=== PATIENT | female | born 1990 | race African-American/Black ===

== ENCOUNTER 2016-09-23 12:01 | Emergency (ER) | payer BC, OTHER ==
[~2016-09-23] VITALS: Ht 177.8 cm; Wt 93.4 kg
[~2016-09-23 12:01] MED LIST: VALA500T5 PO
[2016-09-23 12:20] VITALS: BP 120/68
[2016-09-23] MEDS ORDERED: diphenhydrAMINE HCL 25 MG CAPSULE PO ONE (12:45)
[2016-09-23] MEDS ORDERED: METOCLOPRAMIDE 10 MG TABLET. PO ONE (12:45)
--- NOTE | 2016-09-23 12:45 | PHYS DOC ---
Past Medical History Past Medical History: Migraines, Other Additional Past Medical Histor: genital herpes Past Surgical History: No Surgical History Alcohol Use: Occasionally Drug Use: None Adult General Chief Complaint Chief Complaint: HEADACHE HPI HPI Patient is a 26 year old female presents to emergency department stating that she's had a headache for the last 3 days. She states it's above the left frontal area. She denies any visual changes. She denies any cough congestion she denies any nasal issues. Patient states she has a history of migraines and this is not her typical migraine headache. Patient denies any difficulty with vision, denies any photophobia, does state that she feels nauseated however has not vomited. Patient denies . Review of Systems Review of Systems Constitutional: Denies fever complaint of chills [] Eyes: Denies change in visual acuity, redness, or eye pain [] HENT: Denies nasal congestion or sore throat [] Respiratory: Denies cough or shortness of breath [] Cardiovascular: No additional information not addressed in HPI [] GI: Denies abdominal pain, nausea, vomiting, bloody stools or diarrhea [] : Denies dysuria or hematuria [] Musculoskeletal: Denies back pain or joint pain [] Integument: Denies rash or skin lesions [] Neurologic: headache, denies focal weakness or sensory changes [] Endocrine: Denies polyuria or polydipsia [] Current Medications Current Medications Current Medications Medications (Trade) Dose Ordered Sig/Shavonne Start Time Stop Time Status Last Admin Dose Admin Diphenhydramine HCl (Benadryl) 25 mg 1X ONCE 09/23/16 12:45 09/23/16 12:46 DC 09/23/16 13:35 25 MG Metoclopramide HCl (Reglan) 10 mg 1X ONCE 09/23/16 12:45 09/23/16 12:46 DC 09/23/16 13:35 10 MG Allergies Allergies Allergies Coded Allergies Type Severity Reaction Last Updated Verified No Known Drug Allergies 06/06/14 No Physical Exam Physical Exam Constitutional: Well developed, well nourished, no acute distress, non-toxic appearance. [] HENT: Normocephalic, atraumatic, bilateral external ears normal, oropharynx moist, no oral exudates, nose normal. [Bilateral tympanic membranes appear to be normal. Throat with no erythematous noted nares appear to be swollen with erythematous bilaterally. Patient had tenderness along the frontal sinus on the left. No maxillary sinus tenderness no right frontal sinus tenderness. Eyes: PERRLA, EOMI, conjunctiva normal, no discharge. [] Neck: Normal range of motion, no tenderness, supple, no stridor. [] Cardiovascular:Heart rate regular rhythm, no murmur [] Lungs & Thorax: Bilateral breath sounds clear to auscultation [] Skin: Warm, dry, no erythema, no rash. [] Back: No tenderness Extremities: No tenderness, no cyanosis, no clubbing, ROM intact, no edema. [] Neurologic: Alert and oriented X 3, normal motor function, normal sensory function, no focal deficits noted. [] Psychologic: Affect normal, judgement normal, mood normal. [] Current Patient Data Vital Signs Vital Signs Date Time Temp Pulse Resp B/P (MAP) Pulse Ox O2 Delivery O2 Flow Rate FiO2 09/23/16 12:20 99.0 68 16 120/68 (85) 100 Room Air 99.0 Lab Values Laboratory Tests Test 09/23/16 11:33 POC Urine HCG, Qualitative Hcg negative (Negative) EKG EKG [] Radiology/Procedures Radiology/Procedures [][facility] [address] [place], [place] [id number] IMAGING REPORT Signed PATIENT: OSCAR JEFFERSON ACCOUNT: [id number] : 1990 LOCATION: ER AGE: 26 SEX: F EXAM STATUS: REG ER ORD. PHYSICIAN: ESTRADA POLLARD APRN REASON: headache left frontal times 3 days, chills PROCEDURE: CT HEAD WO CONTRAST INDICATION: headache left frontal times 3 days, chills COMPARISON: None. TECHNIQUE: Axial CT images obtained through the head without intravenous contrast. FINDINGS: No intracranial hemorrhage. No midline shift. Basal cisterns patents. Ventricles and sulci are unremarkable. No acute osseous abnormality. Orbits and paranasal sinuses partially seen and unremarkable. IMPRESSION: 1. No acute intracranial hemorrhage. PQRS Compliance Statement: One or more of the following individualized dose reduction techniques were utilized for this examination: 1. Automated exposure control 2. Adjustment of the mA and/or kV according to patient size 3. Use of iterative reconstruction technique DICTATED and SIGNED BY: RASHAD JETT MD DATE: 09/23/16 8214 CC: ESTRADA POLLARD APRN; KENYA ESPINO MD ~ Course & Med Decision Making Course & Med Decision Making Pertinent Labs and Imaging studies reviewed. (See chart for details) CT scan was negative. Patient was provided with Reglan and Benadryl here in the emergency department which patient states that her headache is feeling better. Recommended the bedside states that she's had a history of seizures in the past and he is concerned that these may have caused her to have headaches at this time. Patient denies any recent history of seizures, she denies any other past medical problems. Patient will be discharged home with a prescription for Reglan spoke with patient regarding's using ibuprofen 800 mg every 8 hours for headache. Also Benadryl 25 mg every 6 hours as needed she was also instructed that this medication will cause drowsiness do not take any be alert and oriented. Patient will be discharged home in stable condition signs symptoms to return back to emergency department been provided. [] Dragon Disclaimer Dragon Disclaimer This electronic medical record was generated, in whole or in part, using a voice recognition dictation system. Departure Departure Impression: Primary Impression: Headache Disposition: 01 HOME, SELF-CARE Condition: STABLE Referrals: KENYA ESPINO MD (PCP) Patient Instructions: General Headache Without Cause, [id number] Additional Instructions: Home to rest in quiet dark environment. Cool packs to the forehead and back and neck may also help with the pain and discomfort. Ibuprofen 800 mg every 8 hours with food stop taking few develop upset stomach. Benadryl 25 mg every 6 hours as needed to help with the headaches as well. This medication will cause drowsiness do not take any be alert and oriented. Medication as prescribed. Drink plenty of fluids. Follow-up primary care physician in the next week. Return back to emergency prior signs symptoms become worse Scripts Metoclopramide Hcl (REGLAN) 10 Mg Tablet 1 TAB PO TID Y for PAIN, #90 TAB Prov: ESTRADA POLLARD APRN 09/23/16 ESTRADA POLLARD APRN Sep 23, 2016 12:45
--- NOTE | 2016-09-23 13:54 | RAD ---
INDICATION: headache left frontal times 3 days, chills COMPARISON: None. TECHNIQUE: Axial CT images obtained through the head without intravenous contrast. FINDINGS: No intracranial hemorrhage. No midline shift. Basal cisterns patents. Ventricles and sulci are unremarkable. No acute osseous abnormality. Orbits and paranasal sinuses partially seen and unremarkable. IMPRESSION: 1. No acute intracranial hemorrhage. PQRS Compliance Statement: One or more of the following individualized dose reduction techniques were utilized for this examination: 1. Automated exposure control 2. Adjustment of the mA and/or kV according to patient size 3. Use of iterative reconstruction technique
[2016-09-23] MEDS ORDERED: METO10TA81 PO (14:16)
== END 2016-09-23 14:20 | disposition home or self-care (01) ==
LOC: ER 12:01
DX: R51 Headache (principal); G43.909 Migraine, unspecified, not intractable, without status migrainosus
CPT/HCPCS: 70450; 81025; 99284; J8597; Q0163

== ENCOUNTER 2018-03-11 04:19 | Emergency (ER) | payer SELFPAY ==
[~2018-03-11 04:19] MED LIST changes: +METO10TA81 PO
== END 2018-03-11 04:34 | disposition left against medical advice (07) ==
LOC: ER 04:19
DX: R10.9 Unspecified abdominal pain (principal); Z53.21 Procedure and treatment not carried out due to patient leaving prior to being seen by health care provider

== ENCOUNTER 2018-05-21 07:10 | Inpatient (IN) | payer OTHER ==
[~2018-05-21] VITALS: Ht 175.3 cm; Wt 77.1 kg
[2018-05-21] MEDS ORDERED: ONDANSETRON PF 4 MG/2 ML VIAL. IV ONE (07:30)
--- NOTE | 2018-05-21 07:36 | PHYS DOC ---
Past Medical History Past Medical History: Migraines, Other Additional Past Medical Histor: genital herpes Past Surgical History: No Surgical History Alcohol Use: Occasionally Drug Use: None Adult General Chief Complaint Chief Complaint: ABDOMINAL PAIN HPI HPI Patient is a 27-year-old female who presents to the emergency department for evaluation of upper abdominal pain which began at about 4 AM. She has had some vomiting, but no diarrhea. No bloody emesis, and she denies any lower abdominal pain, pelvic pain, vaginal bleeding, discharge, or urinary symptoms. She states she had a similar episode of pain several months ago, and went to a freestanding ER, where she received some prescriptions but apparently did not get any diagnostic testing, according to the patient. She has otherwise not had similar symptoms in the past. She has not eaten anything today so she is unable to determine if eating seems to affect her symptoms. The pain is in her epigastric area does not necessarily radiate. There are no alleviating or exacerbating factors to her symptoms otherwise. Review of Systems Review of Systems Constitutional: Denies fever or chills [] Eyes: Denies change in visual acuity, redness, or eye pain [] HENT: Denies nasal congestion or sore throat [] Respiratory: Denies cough or shortness of breath [] Cardiovascular:The patient denies any shortness of breath, chest pain, palpitations, or orthopnea [] GI: No additional information not addressed in HPI [] : Denies dysuria or hematuria [] Musculoskeletal: Denies back pain or joint pain [] Integument: Denies rash or skin lesions [] Neurologic: Denies headache, focal weakness or sensory changes [] Endocrine: Denies polyuria or polydipsia [] All other systems were reviewed and found to be within normal limits, except as documented in this note. Current Medications Current Medications Current Medications Medications (Trade) Dose Ordered Sig/Shavonne Start Time Stop Time Status Last Admin Dose Admin Morphine Sulfate (Morphine Sulfate) 4 mg PRN Q15MIN PRN 05/21/18 07:30 05/22/18 07:29 05/21/18 08:19 4 MG Ondansetron HCl (Zofran) 4 mg 1X ONCE 05/21/18 07:30 05/21/18 07:31 DC 05/21/18 07:39 4 MG Sodium Chloride 1,000 ml @ 1,000 mls/hr Q1H 05/21/18 07:22 05/21/18 08:21 DC 05/21/18 07:39 1,000 MLS/HR Allergies Allergies Allergies Coded Allergies Type Severity Reaction Last Updated Verified No Known Drug Allergies 06/06/14 No Physical Exam Physical Exam PHYSICAL EXAM: CONSTITUTIONAL: Well developed, well nourished HEAD: normocephalic, atraumatic EENT: PERRL, EOMI. Conjunctivae normal color, sclerae non-icteric; moist mucous membranes. NECK: Supple, non-tender; no meningismus. LUNGS: Lungs CTA, breathing even and unlabored. Normal air movement. HEART: Regular rate and rhythm, no murmur CHEST: No deformity; non-tender ABDOMEN: The abdomen is soft, there is moderate epigastric and right upper quadrant tenderness to palpation which reproduces the patient's pain, left upper quadrant, and the remainder of the lower abdomen are soft and non-tender, no masses or bruits. EXTREM: Normal ROM; no deformity, no calf tenderness. Normal pulses palpable in all extremities. There is no pedal edema. SKIN: No rash; no diaphoresis NEURO: Alert; normal speech and cognition; CN's grossly intact; strength grossly intact without focal deficit. BACK: No CVA TTP. Current Patient Data Vital Signs Vital Signs Date Time Temp Pulse Resp B/P (MAP) Pulse Ox O2 Delivery O2 Flow Rate FiO2 05/21/18 08:30 66 16 93/57 (69) 97 Room Air 05/21/18 07:24 98.4 98.4 Lab Values Laboratory Tests Test 05/21/18 07:15 05/21/18 07:30 05/21/18 07:33 Urine Collection Type Unknown Urine Color Melyssa Urine Clarity Clear Urine pH 6.5 Urine Specific [place] >=1.030 Urine Protein Negative mg/dL (NEG-TRACE) Urine Glucose (UA) Negative mg/dL (NEG) Urine Ketones (Stick) Trace mg/dL (NEG) Urine Blood Negative (NEG) Urine Nitrite Negative (NEG) Urine Bilirubin Small (NEG) Urine Urobilinogen Dipstick 2.0 mg/dL (0.2 mg/dL) Urine Leukocyte Esterase Trace (NEG) Urine RBC 0 /HPF (0-2) Urine WBC 0 /HPF (0-4) Urine Squamous Epithelial Cells Few /LPF Urine Bacteria 0 /HPF (0-FEW) Urine Mucus Marked /LPF POC Urine HCG, Qualitative Hcg negative (Negative) White Blood Count 13.6 x10^3/uL (4.0-11.0) H Red Blood Count 3.82 x10^6/uL (3.50-5.40) Hemoglobin 12.9 g/dL (12.0-15.5) Hematocrit 38.6 % (36.0-47.0) Mean Corpuscular Volume 101 fL (79-100) H Mean Corpuscular Hemoglobin 34 pg (25-35) Mean Corpuscular Hemoglobin Concent 33 g/dL (31-37) Red Cell Distribution Width 13.7 % (11.5-14.5) Platelet Count 190 x10^3/uL (140-400) Neutrophils (%) (Auto) 84 % (31-73) H Lymphocytes (%) (Auto) 10 % (24-48) L Monocytes (%) (Auto) 5 % (0-9) Eosinophils (%) (Auto) 0 % (0-3) Basophils (%) (Auto) 0 % (0-3) Neutrophils # (Auto) 11.4 x10^3uL (1.8-7.7) H Lymphocytes # (Auto) 1.4 x10^3/uL (1.0-4.8) Monocytes # (Auto) 0.7 x10^3/uL (0.0-1.1) Eosinophils # (Auto) 0.1 x10^3/uL (0.0-0.7) Basophils # (Auto) 0.0 x10^3/uL (0.0-0.2) Sodium Level 141 mmol/L (136-145) Potassium Level 3.9 mmol/L (3.5-5.1) Chloride Level 103 mmol/L (98-107) Carbon Dioxide Level 26 mmol/L (21-32) Anion Gap 12 (6-14) Blood Urea Nitrogen 9 mg/dL (7-20) Creatinine 0.9 mg/dL (0.6-1.0) Estimated GFR (Cockcroft-Gault) 89.6 BUN/Creatinine Ratio 10 (6-20) Glucose Level 122 mg/dL (70-99) H Calcium Level 9.3 mg/dL (8.5-10.1) Total Bilirubin 1.1 mg/dL (0.2-1.0) H Aspartate Amino Transferase (AST) 131 U/L (15-37) H Alanine Aminotransferase (ALT) 78 U/L (14-59) H Alkaline Phosphatase 84 U/L (46-116) Total Protein 7.4 g/dL (6.4-8.2) Albumin 3.8 g/dL (3.4-5.0) Albumin/Globulin Ratio 1.1 (1.0-1.7) Lipase 110 U/L (73-393) Laboratory Tests 05/21/18 07:33 Laboratory Tests 05/21/18 07:33 EKG EKG [] Radiology/Procedures Radiology/Procedures [PROCEDURE: ABDOMEN LTD Indication:RUQ PAIN TECHNIQUE: Grayscale, color Doppler and spectral waveform is of the abdomen obtained. COMPARISON:None FINDINGS:Visualized pancreas is within normal limits. IVC is patent. Liver is mildly enlarged measuring 18.3 cm in longest dimension with normal echogenicity. Main portal vein is patent. Layering gallstones noted. No pericholecystic fluid or gallbladder wall thickening. CBD measures 9 mm in diameter and is moderately dilated. Right kidney measures 12 cm in length without hydronephrosis. IMPRESSION: 1. Cholelithiasis without imaging evidence of acute cholecystitis. 2. Dilated CBD in the region of head of the pancreas. Differential diagnoses includes choledocholithiasis, pancreatic head/distal CBD mass or stricture. Further evaluation with nonemergent MRCP and MRI abdomen with IV contrast recommended. ] Course & Med Decision Making Course & Med Decision Making Pertinent Labs and Imaging studies reviewed. (See chart for details) 9:05 AM: The patient's condition remained stable. I suspect that she has a common bile duct stone. I discussed the case with GI, and the hospitalist will admit the patient for further evaluation and treatment.[] Which should be noted that although the patient is a patient of Dr. Mustafa according to the computer, the patient states that she has not seen Dr. Mustafa in many years and is no longer a patient of the practice. Dragon Disclaimer Dragon Disclaimer This electronic medical record was generated, in whole or in part, using a voice recognition dictation system. Departure Departure Impression: Primary Impression: Choledocholithiasis Disposition: 09 ADMITTED INPATIENT Admitting Physician: Other (Riffel) Condition: STABLE Referrals: KENYA MUSTAFA MD (PCP) NESS SALDANA MD May 21, 2018 07:36
[2018-05-21] MEDS: IV NORMAL SALINE 1000ML BAG 1,000 ML IV SCH (07:39)
[2018-05-21 07:40] LABS: BASO % 0 % (0-3); EOS # 0.1 x10^3/uL (0.0-0.7); EOS % 0 % (0-3); HEMATOCRIT 38.6 % (36.0-47.0); HEMOGLOBIN 12.9 g/dL (12.0-15.5); LYMPH # 1.4 x10^3/uL (1.0-4.8); LYMPH % 10 % (24-48); MEAN CORPUSCULAR HEMOGLOBIN 34 pg (25-35); MEAN CORPUSCULAR HGB CONC 33 g/dL (31-37); MEAN CORPUSCULAR VOLUME 101 fL (79-100); MONO # 0.7 x10^3/uL (0.0-1.1); MONO % 5 % (0-9); NEUT # 11.4 x10^3uL (1.8-7.7); NEUT % 84 % (31-73); PLATELET COUNT 190 x10^3/uL (140-400); RED BLOOD COUNT 3.82 x10^6/uL (3.50-5.40); RED CELL DISTRIBUTION WIDTH 13.7 % (11.5-14.5); WHITE BLOOD COUNT 13.6 x10^3/uL (4.0-11.0)
[2018-05-21] MEDS: MORPHINE SULFATE 4 MG/ML VIAL. IV/SQ PRN ×2 (07:40→08:19)
[2018-05-21 07:41] LABS: BILIRUBIN,URINE SMALL (NEG); CLARITY,URINE CLEAR; COLOR,URINE AMBER; NITRITE,URINE NEGATIVE (NEG); PH,URINE 6.5; PROTEIN,URINE NEGATIVE (NEG-TRACE)
[2018-05-21 07:52] LABS: CALCIUM 9.3 mg/dL (8.5-10.1); CREATININE 0.9 mg/dL (0.6-1.0); GFR 89.6; POTASSIUM 3.9 mmol/L (3.5-5.1)
[2018-05-21 07:53] LABS: SQUAMOUS EPITHELIAL CELL,UR FEW /LPF
[2018-05-21 07:54] LABS: BACTERIA,URINE 0 /HPF (0-FEW); RBC,URINE 0 /HPF (0-2); WBC,URINE 0 /HPF (0-4)
[2018-05-21 07:58] LABS: ALBUMIN 3.8 g/dL (3.4-5.0); ALBUMIN/GLOBULIN RATIO 1.1 (1.0-1.7); TOTAL BILIRUBIN 1.1 mg/dL (0.2-1.0); TOTAL PROTEIN 7.4 g/dL (6.4-8.2)
--- NOTE | 2018-05-21 08:32 | RAD ---
Indication:RUQ PAIN TECHNIQUE: Grayscale, color Doppler and spectral waveform is of the abdomen obtained. COMPARISON:None FINDINGS:Visualized pancreas is within normal limits. IVC is patent. Liver is mildly enlarged measuring 18.3 cm in longest dimension with normal echogenicity. Main portal vein is patent. Layering gallstones noted. No pericholecystic fluid or gallbladder wall thickening. CBD measures 9 mm in diameter and is moderately dilated. Right kidney measures 12 cm in length without hydronephrosis. IMPRESSION: 1. Cholelithiasis without imaging evidence of acute cholecystitis. 2. Dilated CBD in the region of head of the pancreas. Differential diagnoses includes choledocholithiasis, pancreatic head/distal CBD mass or stricture. Further evaluation with nonemergent MRCP and MRI abdomen with IV contrast recommended. Electronically signed by: Pedro Norris DO (05/21/2018 8:28 AM) [facility]
--- NOTE | 2018-05-21 09:10 | PDOC1 ---
History and Physical Date of Admission Date of Admission DATE: 05/21/18 TIME: :09 Identification/Chief Complaint Chief Complaint Abdominal pain Source Source: Caregiver, Chart review, Patient History of Present Illness History of Present Illness Ms Hernandez is a 27-year-old female [employer]BB[employer]ING MECH[employer]IC with no significant PMHx who presents to the ED with RUQ abdominal pain which began at about 4 AM. She has had some vomiting, but no diarrhea or constipation. No bloody emesis, and she denies any lower abdominal pain, pelvic pain, vaginal bleeding, discharge, or urinary symptoms. She states she had a similar episode of pain several months ago, and went to a freestanding ER, [facility] the [facility], where she received some prescriptions but apparently did not get any abdominal imaging, according to the patient and her mother bedside. She had similar symptoms about 9 months ago, was seen at an outpatient [facility] clinic, told she had mild LFT elevation and WBC elevation and states she was treated for GERD. She has not eaten anything today due to vomiting, cannot recall if pain worsened by food, though she does think so. The pain is in her epigastric area as well as RUQ and does not necessarily radiate. There are no alleviating or exacerbating factors to her symptoms otherwise. WBC 13.6, Bili 1.1, AST 131, ALT 78. Negative ETOH. Has a 12 and 9 yo child at home, both in good health. 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 No recent illnesses. Accompanied by her mother, bedside. Past Medical History Cardiovascular: No pertinent hx Pulmonary: No pertinent hx GI: No pertinent hx Heme/Onc: No pertinent hx Hepatobiliary: No pertinent hx Psych: No pertinent hx Rheumatologic: No pertinent hx Infectious disease: No pertinent hx ENT: No pertinent hx Renal/: No pertinent hx Endocrine: No pertinent hx Dermatology: No pertinent hx Grav: 2 Para: 2 Past Surgical History Past Surgical History: No pertinent history Family History Family History: High Cholestrol Family History: Parent (HLD - mother) Social History Smoke: No ALCOHOL: rare Drugs: None Current Problem List Problem List Problems Medical Problems: (1) Choledocholithiasis Status: Acute Current Medications Current Medications Current Medications Morphine Sulfate (Morphine Sulfate) 4 mg PRN Q15MIN PRN IV/SQ PAIN GREATER THAN 3/10 Last administered on 05/21/18at 08:19; Start 05/21/18 at 07:30; Stop at 07:29 Sodium Chloride 1,000 ml @ 1,000 mls/hr Q1H IV Last administered on 05/21/18at 07:39; Start 05/21/18 at 07:22; Stop 05/21/18 at 08:21; Status DC Ondansetron HCl (Zofran) 4 mg 1X ONCE IV Last administered on 05/21/18at 07:39 ; Start 05/21/18 at 07:30; Stop 05/21/18 at 07:31; Status DC Ertapenem 50 ml @ 100 mls/hr 1X ONCE IV ; Start 05/21/18 at 09:15; Stop at 09:44; Status UNV Active Scripts Active Reglan (Metoclopramide Hcl) 10 Mg Tablet 1 Tab PO TID PRN Reported No Known Medications Prior To Admisstion (Info) Each 1 Each Allergies Allergies: Coded Allergies: No Known Drug Allergies (Unverified , 06/06/14) ROS General: YES: Appetite; No: Chills, Night Sweats, Fatigue, Malaise, Other PSYCHOLOGICAL ROS: No: Anxiety, Behavioral Disorder, Concentration difficultie , Decreased libido, Depression, Disorientation, Hallucinations, Hostility, Irritablity, Memory difficulties, Mood Swings, Obsessive thoughts, Physical abuse, Sexual abuse, Sleep disturbances, Suicidal ideation, Other Eyes: No Blurry vision, No Decreased vision, No Double vision, No Dry eyes, No Excessive tearing, No Eye Pain, No Itchy Eyes, No Loss of vision, No Photophobia , No Scotomata, No Uses contacts, No Uses glasses, No Other HEENT: No: Heacaches, Visual Changes, Hearing change, Nasal congestion, Nasal discharge, Oral lesions, Sinus pain, Sore Throat, Epistaxis, Sneezing, Snoring, Tinnitus, Vertigo, Vocal changes, Other ALLERGY AND IMMUNOLOGY: No: Hives, Insect Bite Sensitivity, Itchy/Watery Eyes, Nasal Congestion, Post Nasal Drip, Seasonal Allergies, Other Hematological and Lymphatic: No: Bleeding Problems, Blood Clots, Blood Transfusions, Brusing, Night Sweats, Pallor, Swollen Lymph Nodes, Other ENDOCRINE: No: Breast Changes, Galactorrhea, Hair Pattern Changes, Hot Flashes , Malaise/lethargy, Mood Swings, Palpitations, Polydipsia/polyuria, Skin Changes , Temperature Intolerance, Unexpected Weight Changes, Other Breast: No New/Changing Breast Lumps, No Nipple changes, No Nipple discharge, No Other Respiratory: No: Cough, Hemoptysis, Orthopnea, Pleuritic Pain, Shortness of breath, SOB with excertion, Sputum Changes, Stridor, Tachypnea, Wheezing, Other Cardiovascular: No Chest Pain, No Palpitations, No Orthopnea, No Paroxysmal Noc. Dyspnea, No Edema, No Lt Headedness, No Other Gastrointestinal: Yes Nausea, Yes Vomiting, Yes Abdominal Pain; No Diarrhea, No Constipation, No Melena, No Hematochezia, No Other Genitourinary: No Dysuria, No Frequency, No Incontinence, No Hematuria, No Retention, No Discharge, No Urgency, No Pain, No Flank Pain, No Other, No , No , No , No , No , No , No Musculoskeletal: No Gait Disturbance, No Joint Pain, No Joint Stiffness, No Joint Swelling, No Muscle Pain, No Muscular Weakness, No Pain In:, No Swelling In:, No Other Neurological: No Behavorial Changes, No Bowel/Bladder ControlChng, No Confusion , No Dizziness, No Gait Disturbance, No Headaches, No Impaired Coord/balance, No Memory Loss, No Numbness/Tingling, No Seizures, No Speech Problems, No Tremors, No Visual Changes, No Weakness, No Other Skin: No Dry Skin, No Eczema, No Hair Changes, No Lumps, No Mole Changes, No Mottling, No Nail Changes, No Pruritus, No Rash, No Skin Lesion Changes, No Other, No Acne Physical Exam General: Alert, Oriented X3, Cooperative, No acute distress HEENT: Atraumatic, PERRLA, EOMI, Mucous membr. moist/pink Lungs: Clear to auscultation, Normal air movement Heart: S1S2, RRR, no gallops, no murmurs Abdomen: Normal bowel sounds, Soft, No hepatosplenomegaly, No masses, Other ( RUQ tender) Rectal Exam: not examined PELVIC: Exam declined by patient Extremities: No clubbing, No cyanosis, No edema, Normal pulses, No tenderness/ swelling Skin: No rashes, No breakdown, No significant lesion Neuro: Normal gait, Normal speech, Strength at 5/5 X4 ext, Normal tone, Sensation intact, Cranial nerves 3-12 NL, Reflexes 2+ Psych/Mental Status: Mental status NL, Mood NL Vitals Vitals Vital Signs Date Time Temp Pulse Resp B/P (MAP) Pulse Ox O2 Delivery O2 Flow Rate FiO2 05/21/18 08:30 66 16 93/57 (69) 97 Room Air 05/21/18 07:24 98.4 98.4 Labs Labs Laboratory Tests Test 05/21/18 07:15 05/21/18 07:30 05/21/18 07:33 Urine Collection Type Unknown Urine Color Melyssa Urine Clarity Clear Urine pH 6.5 Urine Specific Wade >=1.030 Urine Protein Negative mg/dL (NEG-TRACE) Urine Glucose (UA) Negative mg/dL (NEG) Urine Ketones (Stick) Trace mg/dL (NEG) Urine Blood Negative (NEG) Urine Nitrite Negative (NEG) Urine Bilirubin Small (NEG) Urine Urobilinogen Dipstick 2.0 mg/dL (0.2 mg/dL) Urine Leukocyte Esterase Trace (NEG) Urine RBC 0 /HPF (0-2) Urine WBC 0 /HPF (0-4) Urine Squamous Epithelial Cells Few /LPF Urine Bacteria 0 /HPF (0-FEW) Urine Mucus Marked /LPF Bedside Urine HCG, Qualitative Hcg negative (Negative) White Blood Count 13.6 x10^3/uL (4.0-11.0) Red Blood Count 3.82 x10^6/uL (3.50-5.40) Hemoglobin 12.9 g/dL (12.0-15.5) Hematocrit 38.6 % (36.0-47.0) Mean Corpuscular Volume 101 fL (79-100) Mean Corpuscular Hemoglobin 34 pg (25-35) Mean Corpuscular Hemoglobin Concent 33 g/dL (31-37) Red Cell Distribution Width 13.7 % (11.5-14.5) Platelet Count 190 x10^3/uL (140-400) Neutrophils (%) (Auto) 84 % (31-73) Lymphocytes (%) (Auto) 10 % (24-48) Monocytes (%) (Auto) 5 % (0-9) Eosinophils (%) (Auto) 0 % (0-3) Basophils (%) (Auto) 0 % (0-3) Neutrophils # (Auto) 11.4 x10^3uL (1.8-7.7) Lymphocytes # (Auto) 1.4 x10^3/uL (1.0-4.8) Monocytes # (Auto) 0.7 x10^3/uL (0.0-1.1) Eosinophils # (Auto) 0.1 x10^3/uL (0.0-0.7) Basophils # (Auto) 0.0 x10^3/uL (0.0-0.2) Sodium Level 141 mmol/L (136-145) Potassium Level 3.9 mmol/L (3.5-5.1) Chloride Level 103 mmol/L (98-107) Carbon Dioxide Level 26 mmol/L (21-32) Anion Gap 12 (6-14) Blood Urea Nitrogen 9 mg/dL (7-20) Creatinine 0.9 mg/dL (0.6-1.0) Estimated GFR (Cockcroft-Gault) 89.6 BUN/Creatinine Ratio 10 (6-20) Glucose Level 122 mg/dL (70-99) Calcium Level 9.3 mg/dL (8.5-10.1) Total Bilirubin 1.1 mg/dL (0.2-1.0) Aspartate Amino Transf (AST/SGOT) 131 U/L (15-37) Alanine Aminotransferase (ALT/SGPT) 78 U/L (14-59) Alkaline Phosphatase 84 U/L (46-116) Total Protein 7.4 g/dL (6.4-8.2) Albumin 3.8 g/dL (3.4-5.0) Albumin/Globulin Ratio 1.1 (1.0-1.7) Lipase 110 U/L (73-393) Laboratory Tests Test 05/21/18 07:15 05/21/18 07:30 05/21/18 07:33 Urine Collection Type Unknown Urine Color Melyssa Urine Clarity Clear Urine pH 6.5 Urine Specific Wade >=1.030 Urine Protein Negative mg/dL (NEG-TRACE) Urine Glucose (UA) Negative mg/dL (NEG) Urine Ketones (Stick) Trace mg/dL (NEG) Urine Blood Negative (NEG) Urine Nitrite Negative (NEG) Urine Bilirubin Small (NEG) Urine Urobilinogen Dipstick 2.0 mg/dL (0.2 mg/dL) Urine Leukocyte Esterase Trace (NEG) Urine RBC 0 /HPF (0-2) Urine WBC 0 /HPF (0-4) Urine Squamous Epithelial Cells Few /LPF Urine Bacteria 0 /HPF (0-FEW) Urine Mucus Marked /LPF Bedside Urine HCG, Qualitative Hcg negative (Negative) White Blood Count 13.6 x10^3/uL (4.0-11.0) Red Blood Count 3.82 x10^6/uL (3.50-5.40) Hemoglobin 12.9 g/dL (12.0-15.5) Hematocrit 38.6 % (36.0-47.0) Mean Corpuscular Volume 101 fL (79-100) Mean Corpuscular Hemoglobin 34 pg (25-35) Mean Corpuscular Hemoglobin Concent 33 g/dL (31-37) Red Cell Distribution Width 13.7 % (11.5-14.5) Platelet Count 190 x10^3/uL (140-400) Neutrophils (%) (Auto) 84 % (31-73) Lymphocytes (%) (Auto) 10 % (24-48) Monocytes (%) (Auto) 5 % (0-9) Eosinophils (%) (Auto) 0 % (0-3) Basophils (%) (Auto) 0 % (0-3) Neutrophils # (Auto) 11.4 x10^3uL (1.8-7.7) Lymphocytes # (Auto) 1.4 x10^3/uL (1.0-4.8) Monocytes # (Auto) 0.7 x10^3/uL (0.0-1.1) Eosinophils # (Auto) 0.1 x10^3/uL (0.0-0.7) Basophils # (Auto) 0.0 x10^3/uL (0.0-0.2) Sodium Level 141 mmol/L (136-145) Potassium Level 3.9 mmol/L (3.5-5.1) Chloride Level 103 mmol/L (98-107) Carbon Dioxide Level 26 mmol/L (21-32) Anion Gap 12 (6-14) Blood Urea Nitrogen 9 mg/dL (7-20) Creatinine 0.9 mg/dL (0.6-1.0) Estimated GFR (Cockcroft-Gault) 89.6 BUN/Creatinine Ratio 10 (6-20) Glucose Level 122 mg/dL (70-99) Calcium Level 9.3 mg/dL (8.5-10.1) Total Bilirubin 1.1 mg/dL (0.2-1.0) Aspartate Amino Transf (AST/SGOT) 131 U/L (15-37) Alanine Aminotransferase (ALT/SGPT) 78 U/L (14-59) Alkaline Phosphatase 84 U/L (46-116) Total Protein 7.4 g/dL (6.4-8.2) Albumin 3.8 g/dL (3.4-5.0) Albumin/Globulin Ratio 1.1 (1.0-1.7) Lipase 110 U/L (73-393) Images Images Abd US - 1. Cholelithiasis without imaging evidence of acute cholecystitis. 2. Dilated CBD in the region of head of the pancreas. Differential diagnoses includes choledocholithiasis, pancreatic head/distal CBD mass or stricture. Further evaluation with nonemergent MRCP and MRI abdomen with IV contrast recommended. VTE Prophylaxis Ordered VTE Prophylaxis Devices: Yes VTE Pharmacological Prophylaxi: No Assessment/Plan Assessment/Plan A/P: Abdominal pain - likely cholecystitis with leukocytosis, CBD widening. Will have GI and gen surgery to see. This is recurrent. Unable to take PO. IV pain meds for now Transaminitis - denies ETOH, possibly 2/2 cholestatic disease, lower risk for autoimmune hepatitis. 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 Will check TSH, ferritin. denies drugs of abuse Nausea and vomiting - zofran helping minimally. Will keep NPO as she cannot hold down food or liquids FEN - NPO PPX - SCDs FULL CODE Inpatient for nausea/vomiting/abdominal pain, likely 2/2 gallbladder disease SENDY STEELE MD May 21, 2018 09:10
[2018-05-21] MEDS ORDERED: MEROPENEM 500 MG in IV NORMAL SALINE 50ML 50 ML IV ONE (09:15)
[2018-05-21] MEDS ORDERED: ERTAPENEM 1GM IVPB (GENERIC) 50 ML IV ONE (09:15)
[2018-05-21] MEDS ORDERED: MORPHINE SULFATE 4 MG/ML VIAL. IV PRN (09:15)
[2018-05-21 09:29] LABS: BARBITURATES NEG (NEG); BENZODIAZEPINES NEG (NEG); CANNABINOIDS NEG (NEG); COCAINE NEG (NEG); METHADONE NEG (NEG); OPIATES NEG (NEG); PHENCYCLIDINE NEG (NEG)
[2018-05-21 09:44] LABS: AMPHETAMINE/METHAMPHETAMINE NEG (NEG)
[2018-05-21] MEDS ORDERED: IV DEXTROSE 5%-LACT RINGERS 1,000 ML IV ONE (10:00)
[2018-05-21 11:00] VITALS: BP 100/65
--- NOTE | 2018-05-21 11:11 | PDOC2 ---
DONI HENRY Tona SEA KAYAKING GUIDE 05/21/18 1111: CONSULT Date of Consult Date of Consult DATE: 05/21/18 TIME: 11:02 Reason for Consult Reason for Consult: dilated CBD, cholelithiasis Referring Physician Referring Physician: Dr Mae Identification/Chief Complaint Chief Complaint abdominal pain Source Source: Chart review, Patient History of Present Illness Reason for Visit: Reports acute onset of epigastric pain. She reports the pain does radiate to right scapula. Associated nausea and emesis. Similar pain intermittently over the last year, however treated for GERD, this episode was more severe. She does reports 15 lb weight loss in last 2-3 months, unintentional. Torres not feel pain is aggravated by food Past Medical History Cardiovascular: No pertinent hx Pulmonary: No pertinent hx GI: No pertinent hx Heme/Onc: No pertinent hx Hepatobiliary: No pertinent hx Psych: No pertinent hx Rheumatologic: No pertinent hx Infectious disease: No pertinent hx ENT: No pertinent hx Renal/: No pertinent hx Endocrine: No pertinent hx Dermatology: No pertinent hx Grav: 2 Para: 2 Past Surgical History Past Surgical History: No pertinent history Family History Family History: High Cholestrol Social History Social History: Parent (HLD - mother) No ALCOHOL: rare Drugs: None Current Problem List Problem List Problems Medical Problems: (1) Choledocholithiasis Status: Acute Current Medications Current Medications Current Medications Morphine Sulfate (Morphine Sulfate) 4 mg PRN Q15MIN PRN IV/SQ PAIN GREATER THAN 3/10 Last administered on 05/21/18at 08:19; Start 05/21/18 at 07:30; Stop at 07:29 Sodium Chloride 1,000 ml @ 1,000 mls/hr Q1H IV Last administered on 05/21/18at 07:39; Start 05/21/18 at 07:22; Stop 05/21/18 at 08:21; Status DC Ondansetron HCl (Zofran) 4 mg 1X ONCE IV Last administered on 05/21/18at 07:39 ; Start 05/21/18 at 07:30; Stop 05/21/18 at 07:31; Status DC Ertapenem 50 ml @ 100 mls/hr 1X ONCE IV ; Start 05/21/18 at 09:15; Stop at 09:44; Status UNV Morphine Sulfate (Morphine Sulfate) 4 mg PRN Q2HR PRN IV PAIN Last administered on 05/21/18at 10:45; Start 05/21/18 at 09:15; Stop 05/22/18 at 09:14 Meropenem 500 mg/ Sodium Chloride 50 ml @ 100 mls/hr 1X ONCE IV Last administered on 05/21/18at 09:33; Start 05/21/18 at 09:15; Stop 05/21/18 at 09:44 ; Status DC Dextrose/Lactated Ringer's 1,000 ml @ 125 mls/hr 1X ONCE IV Last administered on 05/21/18at 10:52; Start 05/21/18 at 10:00; Stop 05/21/18 at 17:59 Active Scripts Active Reglan (Metoclopramide Hcl) 10 Mg Tablet 1 Tab PO TID PRN Reported No Known Medications Prior To Admisstion (Info) Each 1 Each Allergies Allergies: Coded Allergies: No Known Drug Allergies (Unverified , 06/06/14) ROS General: No: Chills, Other (fevers) PSYCHOLOGICAL ROS: No: Anxiety, Depression Eyes: No Blurry vision, No Double vision HEENT: No: Heacaches, Sore Throat Hematological and Lymphatic: No: Bleeding Problems, Blood Clots Respiratory: No: Cough, Shortness of breath Cardiovascular: No Chest Pain, No Palpitations Gastrointestinal: Yes Other (see hpi) Genitourinary: No Dysuria, No Retention Musculoskeletal: No Joint Pain, No Muscle Pain Neurological: No Confusion, No Numbness/Tingling Skin: No Pruritus, No Rash Physical Exam General: Alert, Oriented X3, Cooperative, No acute distress HEENT: PERRLA, Mucous membr. moist/pink Lungs: Clear to auscultation, Normal air movement Heart: Regular rate, Normal S1, Normal S2, No murmurs Abdomen: Soft, Other (epigastric TTP) Extremities: No clubbing, No cyanosis Skin: No rashes, No breakdown Neuro: Normal gait, Normal speech Psych/Mental Status: Mental status NL, Mood NL MUSCULOSKELETAL: No deformity, No swelling Vitals VITALS Vital Signs Date Time Temp Pulse Resp B/P (MAP) Pulse Ox O2 Delivery O2 Flow Rate FiO2 05/21/18 10:45 16 Room Air 05/21/18 09:45 68 102/70 (81) 100 05/21/18 07:24 98.4 98.4 Labs Labs Laboratory Tests Test 05/21/18 07:15 05/21/18 07:30 05/21/18 07:33 Urine Collection Type Unknown Urine Color Melyssa Urine Clarity Clear Urine pH 6.5 Urine Specific Baldwin >=1.030 Urine Protein Negative mg/dL (NEG-TRACE) Urine Glucose (UA) Negative mg/dL (NEG) Urine Ketones (Stick) Trace mg/dL (NEG) Urine Blood Negative (NEG) Urine Nitrite Negative (NEG) Urine Bilirubin Small (NEG) Urine Urobilinogen Dipstick 2.0 mg/dL (0.2 mg/dL) Urine Leukocyte Esterase Trace (NEG) Urine RBC 0 /HPF (0-2) Urine WBC 0 /HPF (0-4) Urine Squamous Epithelial Cells Few /LPF Urine Bacteria 0 /HPF (0-FEW) Urine Mucus Marked /LPF Urine Opiates Screen Neg (NEG) Urine Methadone Screen Neg (NEG) Urine Barbiturates Neg (NEG) Urine Phencyclidine Screen Neg (NEG) Urine Amphetamine/Methamphetamine Neg (NEG) Urine Benzodiazepines Screen Neg (NEG) Urine Cocaine Screen Neg (NEG) Urine Cannabinoids Screen Neg (NEG) Urine Ethyl Alcohol Neg (NEG) Bedside Urine HCG, Qualitative Hcg negative (Negative) White Blood Count 13.6 x10^3/uL (4.0-11.0) Red Blood Count 3.82 x10^6/uL (3.50-5.40) Hemoglobin 12.9 g/dL (12.0-15.5) Hematocrit 38.6 % (36.0-47.0) Mean Corpuscular Volume 101 fL (79-100) Mean Corpuscular Hemoglobin 34 pg (25-35) Mean Corpuscular Hemoglobin Concent 33 g/dL (31-37) Red Cell Distribution Width 13.7 % (11.5-14.5) Platelet Count 190 x10^3/uL (140-400) Neutrophils (%) (Auto) 84 % (31-73) Lymphocytes (%) (Auto) 10 % (24-48) Monocytes (%) (Auto) 5 % (0-9) Eosinophils (%) (Auto) 0 % (0-3) Basophils (%) (Auto) 0 % (0-3) Neutrophils # (Auto) 11.4 x10^3uL (1.8-7.7) Lymphocytes # (Auto) 1.4 x10^3/uL (1.0-4.8) Monocytes # (Auto) 0.7 x10^3/uL (0.0-1.1) Eosinophils # (Auto) 0.1 x10^3/uL (0.0-0.7) Basophils # (Auto) 0.0 x10^3/uL (0.0-0.2) Sodium Level 141 mmol/L (136-145) Potassium Level 3.9 mmol/L (3.5-5.1) Chloride Level 103 mmol/L (98-107) Carbon Dioxide Level 26 mmol/L (21-32) Anion Gap 12 (6-14) Blood Urea Nitrogen 9 mg/dL (7-20) Creatinine 0.9 mg/dL (0.6-1.0) Estimated GFR (Cockcroft-Gault) 89.6 BUN/Creatinine Ratio 10 (6-20) Glucose Level 122 mg/dL (70-99) Calcium Level 9.3 mg/dL (8.5-10.1) Ferritin 216 ng/mL (8-252) Total Bilirubin 1.1 mg/dL (0.2-1.0) Aspartate Amino Transf (AST/SGOT) 131 U/L (15-37) Alanine Aminotransferase (ALT/SGPT) 78 U/L (14-59) Alkaline Phosphatase 84 U/L (46-116) Total Protein 7.4 g/dL (6.4-8.2) Albumin 3.8 g/dL (3.4-5.0) Albumin/Globulin Ratio 1.1 (1.0-1.7) Lipase 110 U/L (73-393) Vitamin B12 Level 1233 pg/mL (247-911) Thyroid Stimulating Hormone (TSH) 1.506 uIU/mL (0.358-3.74) Ethyl Alcohol Level < 10 mg/dL (0-10) Laboratory Tests Test 05/21/18 07:15 05/21/18 07:30 05/21/18 07:33 Urine Collection Type Unknown Urine Color Melyssa Urine Clarity Clear Urine pH 6.5 Urine Specific Baldwin >=1.030 Urine Protein Negative mg/dL (NEG-TRACE) Urine Glucose (UA) Negative mg/dL (NEG) Urine Ketones (Stick) Trace mg/dL (NEG) Urine Blood Negative (NEG) Urine Nitrite Negative (NEG) Urine Bilirubin Small (NEG) Urine Urobilinogen Dipstick 2.0 mg/dL (0.2 mg/dL) Urine Leukocyte Esterase Trace (NEG) Urine RBC 0 /HPF (0-2) Urine WBC 0 /HPF (0-4) Urine Squamous Epithelial Cells Few /LPF Urine Bacteria 0 /HPF (0-FEW) Urine Mucus Marked /LPF Urine Opiates Screen Neg (NEG) Urine Methadone Screen Neg (NEG) Urine Barbiturates Neg (NEG) Urine Phencyclidine Screen Neg (NEG) Urine Amphetamine/Methamphetamine Neg (NEG) Urine Benzodiazepines Screen Neg (NEG) Urine Cocaine Screen Neg (NEG) Urine Cannabinoids Screen Neg (NEG) Urine Ethyl Alcohol Neg (NEG) Bedside Urine HCG, Qualitative Hcg negative (Negative) White Blood Count 13.6 x10^3/uL (4.0-11.0) Red Blood Count 3.82 x10^6/uL (3.50-5.40) Hemoglobin 12.9 g/dL (12.0-15.5) Hematocrit 38.6 % (36.0-47.0) Mean Corpuscular Volume 101 fL (79-100) Mean Corpuscular Hemoglobin 34 pg (25-35) Mean Corpuscular Hemoglobin Concent 33 g/dL (31-37) Red Cell Distribution Width 13.7 % (11.5-14.5) Platelet Count 190 x10^3/uL (140-400) Neutrophils (%) (Auto) 84 % (31-73) Lymphocytes (%) (Auto) 10 % (24-48) Monocytes (%) (Auto) 5 % (0-9) Eosinophils (%) (Auto) 0 % (0-3) Basophils (%) (Auto) 0 % (0-3) Neutrophils # (Auto) 11.4 x10^3uL (1.8-7.7) Lymphocytes # (Auto) 1.4 x10^3/uL (1.0-4.8) Monocytes # (Auto) 0.7 x10^3/uL (0.0-1.1) Eosinophils # (Auto) 0.1 x10^3/uL (0.0-0.7) Basophils # (Auto) 0.0 x10^3/uL (0.0-0.2) Sodium Level 141 mmol/L (136-145) Potassium Level 3.9 mmol/L (3.5-5.1) Chloride Level 103 mmol/L (98-107) Carbon Dioxide Level 26 mmol/L (21-32) Anion Gap 12 (6-14) Blood Urea Nitrogen 9 mg/dL (7-20) Creatinine 0.9 mg/dL (0.6-1.0) Estimated GFR (Cockcroft-Gault) 89.6 BUN/Creatinine Ratio 10 (6-20) Glucose Level 122 mg/dL (70-99) Calcium Level 9.3 mg/dL (8.5-10.1) Ferritin 216 ng/mL (8-252) Total Bilirubin 1.1 mg/dL (0.2-1.0) Aspartate Amino Transf (AST/SGOT) 131 U/L (15-37) Alanine Aminotransferase (ALT/SGPT) 78 U/L (14-59) Alkaline Phosphatase 84 U/L (46-116) Total Protein 7.4 g/dL (6.4-8.2) Albumin 3.8 g/dL (3.4-5.0) Albumin/Globulin Ratio 1.1 (1.0-1.7) Lipase 110 U/L (73-393) Vitamin B12 Level 1233 pg/mL (247-911) Thyroid Stimulating Hormone (TSH) 1.506 uIU/mL (0.358-3.74) Ethyl Alcohol Level < 10 mg/dL (0-10) Assessment/Plan Assessment/Plan abdominal pain cholelithiasis, dilated CBD neat head of pancreas GI consult pending will review with RONNY Jordan MD 05/21/18 1247: CONSULT Assessment/Plan Assessment/Plan Pt seen and examined: 27 year old female reported to the hospital due to abdominal pain and vomiting. The pain is located in the upper abdomen with radiation to the RUQ and back. She has had similar pains in the past and was told it was GERD. She reports associated nausea and vomiting intermittently. She has lost some weight since earlier in the year. During her evaluation a sonogram showed gallstones with some concern for the distal CBD. PMH/PSH/ROS/ SH as above; exam: alert, oriented, NAD, no icterus, no neck masses, lungs clear, heart RR and R, abdomen soft, mildly tender upper abdomen, ext neg for edema; Labs, sono reviewed; A/P) Gallstones, ?dilated CBD. GI following MRCP ordered for today. If MRCP ok, then can do lap kelly tomorrow AM at 7:30. Thanks for the consult! DONI HENRY APRN May 21, 2018 11:11 RONNY HUNT MD May 21, 2018 12:47
--- NOTE | 2018-05-21 11:47 | PDOC2 ---
GI CONSULT Reason For Consult: CBD stone HPI: HPI: 27 y/o female admitted though ER. Awoke at 4:00 a.m. w/ sharp epigastric pain radiating to RUQ and back, associated w/ vomiting. Denies reflux/heartburn, dysphagia, hematemesis, hematochezia, melena, constipation. Had diarrhea x 1 on Monday. Has been losing weight unintentionally - says she had some personal problems and now doesn't have much appetite. No previous EGD or colonoscopy. Denies GB, liver, pancreas, or PUD history. No NSAIDs. Was seen at last year for abd pain, was told her white count was elevated and she should monitor that, GERD suspected as cause for pain. Was seen at [facility] at the [facility] in March for abdominal pain and given omeprazole for suspected GERD which was ineffective and she is no longer taking. Labs: WBC 13.6, Hgb 12.9, MCV 101, plt 190, bili 1.1, AST 131. ALT 78, Alk Phos 84, lipase 110. On US: cholelithiasis, dilated CBD (9mm). PMH: PMH: denies FH: Family History: Other (denies GB history) Social History: Smoke: No ALCOHOL: rare (socially) Drugs: None ROS: GEN: Denies fevers, chills, sweats HEENT: Denies blurred vision, sore throat CV: Denies chest pain RESP: Denies shortness of air, cough GI: Per HPI : Denies hematuria, dysuria ENDO: +weight loss NEURO: Denies confusion, dizziness MSK: Denies weakness, joint pain/swelling SKIN: Denies jaundice, pruritus Vitals: Vitals: Vital Signs Date Time Temp Pulse Resp B/P (MAP) Pulse Ox O2 Delivery O2 Flow Rate FiO2 05/21/18 11:28 16 Room Air 05/21/18 09:45 68 102/70 (81) 100 05/21/18 07:24 98.4 98.4 Labs: Labs: Laboratory Tests Test 05/21/18 07:15 05/21/18 07:30 05/21/18 07:33 Urine Collection Type Unknown Urine Color Melyssa Urine Clarity Clear Urine pH 6.5 Urine Specific [place] >=1.030 Urine Protein Negative mg/dL (NEG-TRACE) Urine Glucose (UA) Negative mg/dL (NEG) Urine Ketones (Stick) Trace mg/dL (NEG) Urine Blood Negative (NEG) Urine Nitrite Negative (NEG) Urine Bilirubin Small (NEG) Urine Urobilinogen Dipstick 2.0 mg/dL (0.2 mg/dL) Urine Leukocyte Esterase Trace (NEG) Urine RBC 0 /HPF (0-2) Urine WBC 0 /HPF (0-4) Urine Squamous Epithelial Cells Few /LPF Urine Bacteria 0 /HPF (0-FEW) Urine Mucus Marked /LPF Urine Opiates Screen Neg (NEG) Urine Methadone Screen Neg (NEG) Urine Barbiturates Neg (NEG) Urine Phencyclidine Screen Neg (NEG) Urine Amphetamine/Methamphetamine Neg (NEG) Urine Benzodiazepines Screen Neg (NEG) Urine Cocaine Screen Neg (NEG) Urine Cannabinoids Screen Neg (NEG) Urine Ethyl Alcohol Neg (NEG) Bedside Urine HCG, Qualitative Hcg negative (Negative) White Blood Count 13.6 x10^3/uL (4.0-11.0) Red Blood Count 3.82 x10^6/uL (3.50-5.40) Hemoglobin 12.9 g/dL (12.0-15.5) Hematocrit 38.6 % (36.0-47.0) Mean Corpuscular Volume 101 fL (79-100) Mean Corpuscular Hemoglobin 34 pg (25-35) Mean Corpuscular Hemoglobin Concent 33 g/dL (31-37) Red Cell Distribution Width 13.7 % (11.5-14.5) Platelet Count 190 x10^3/uL (140-400) Neutrophils (%) (Auto) 84 % (31-73) Lymphocytes (%) (Auto) 10 % (24-48) Monocytes (%) (Auto) 5 % (0-9) Eosinophils (%) (Auto) 0 % (0-3) Basophils (%) (Auto) 0 % (0-3) Neutrophils # (Auto) 11.4 x10^3uL (1.8-7.7) Lymphocytes # (Auto) 1.4 x10^3/uL (1.0-4.8) Monocytes # (Auto) 0.7 x10^3/uL (0.0-1.1) Eosinophils # (Auto) 0.1 x10^3/uL (0.0-0.7) Basophils # (Auto) 0.0 x10^3/uL (0.0-0.2) Sodium Level 141 mmol/L (136-145) Potassium Level 3.9 mmol/L (3.5-5.1) Chloride Level 103 mmol/L (98-107) Carbon Dioxide Level 26 mmol/L (21-32) Anion Gap 12 (6-14) Blood Urea Nitrogen 9 mg/dL (7-20) Creatinine 0.9 mg/dL (0.6-1.0) Estimated GFR (Cockcroft-Gault) 89.6 BUN/Creatinine Ratio 10 (6-20) Glucose Level 122 mg/dL (70-99) Calcium Level 9.3 mg/dL (8.5-10.1) Ferritin 216 ng/mL (8-252) Total Bilirubin 1.1 mg/dL (0.2-1.0) Aspartate Amino Transf (AST/SGOT) 131 U/L (15-37) Alanine Aminotransferase (ALT/SGPT) 78 U/L (14-59) Alkaline Phosphatase 84 U/L (46-116) Total Protein 7.4 g/dL (6.4-8.2) Albumin 3.8 g/dL (3.4-5.0) Albumin/Globulin Ratio 1.1 (1.0-1.7) Lipase 110 U/L (73-393) Vitamin B12 Level 1233 pg/mL (247-911) Thyroid Stimulating Hormone (TSH) 1.506 uIU/mL (0.358-3.74) Ethyl Alcohol Level < 10 mg/dL (0-10) Allergies: Coded Allergies: No Known Drug Allergies (Unverified , 06/06/14) Medications: Current Medications Medications (Trade) Dose Ordered Sig/Shavonne Route PRN Reason Start Time Stop Time Status Last Admin Dose Admin Morphine Sulfate (Morphine Sulfate) 4 mg PRN Q15MIN PRN IV/SQ PAIN GREATER THAN 05/1305/21/18 07:30 05/22/18 07:29 05/21/18 08:19 Sodium Chloride 1,000 ml @ 1,000 mls/hr Q1H IV 05/21/18 07:22 05/21/18 08:21 DC 05/21/18 07:39 Ondansetron HCl (Zofran) 4 mg 1X ONCE IV 05/21/18 07:30 05/21/18 07:31 DC 05/21/18 07:39 Morphine Sulfate (Morphine Sulfate) 4 mg PRN Q2HR PRN IV PAIN 05/21/18 09:15 05/22/18 09:14 05/21/18 10:45 Meropenem 500 mg/ Sodium Chloride 50 ml @ 100 mls/hr 1X ONCE IV 05/21/18 09:15 05/21/18 09:44 DC 05/21/18 09:33 Dextrose/Lactated Ringer's 1,000 ml @ 125 mls/hr 1X ONCE IV 05/21/18 10:00 05/21/18 17:59 05/21/18 10:52 Imaging: Imaging: US IMPRESSION: 1. Cholelithiasis without imaging evidence of acute cholecystitis. 2. Dilated CBD in the region of head of the pancreas. Differential diagnoses includes choledocholithiasis, pancreatic head/distal CBD mass or stricture. Further evaluation with nonemergent MRCP and MRI abdomen with IV contrast recommended. PE: GEN: NAD HEENT: Atraumatic, PERRL LUNGS: CTAB HEART: RRR ABD: NABS, S/ND, currently non-tender w/ morphine EXTREMITY: No edema SKIN: No rashes, no jaundice NEURO/PSYCH: A & O 3 A/P: A/P: Upper abd pain, vomiting - ?recurrent, seen at other facilities, now worse Weight loss Leukocytosis, macrocytosis Elevated bili, AST, ALT Cholelithiasis, dilated CBD CRC screen - average risk -- Check MRCP, monitor labs. BETTE LUTZ May 21, 2018 11:47
[2018-05-21] MEDS: PANTOPRAZOLE IV PUSH 40 MG VIAL. IVP SCH (13:00)
--- NOTE | 2018-05-21 17:10 | RAD ---
Indication: Abdominal pain. Evaluate for choledocholithiasis. TECHNIQUE: MRI and MRCP of the abdomen without IV contrast with MIP reformats. COMPARISON: Ultrasound from the same day findings: Heart is normal in size. No pericardial or pleural effusion. Liver is normal in morphology. No hepatic steatosis. Spleen is unenlarged. No intra or extrahepatic biliary duct dilation. No pericholecystic fluid. No intra or extrahepatic biliary duct dilation. The mid and distal CBD can be completely collapsed. No pancreatic or peripancreatic edema. Main pancreatic duct is nondilated. Adrenal glands demonstrate no nodularity. No hydronephrosis. No bowel obstruction. IMPRESSION: 1. No intra-or extrahepatic duct dilation to suggest distal obstructing lesion. The mid and distal CBD is completely collapsed. Electronically signed by: Pedro Norris DO (05/21/2018 5:07 PM) [facility]
[2018-05-21] MEDS ORDERED: ONDANSETRON PF 4 MG/2 ML VIAL. IV PRN (17:45)
[2018-05-21 19:00] VITALS: BP 100/67
[2018-05-21 23:00] VITALS: BP 109/73
[2018-05-22 04:03] LABS: HEMATOCRIT 34.6 % (36.0-47.0); HEMOGLOBIN 11.5 g/dL (12.0-15.5); RED BLOOD COUNT 3.39 x10^6/uL (3.50-5.40); RED CELL DISTRIBUTION WIDTH 13.8 % (11.5-14.5); WHITE BLOOD COUNT 6.7 x10^3/uL (4.0-11.0)
[2018-05-22] MEDS ORDERED: BUPIVAC MPF-EPI 0.5%-1:200000 30 ML VIAL. ONE ×2 (06:06→09:41)
[2018-05-22] MEDS ORDERED: SURGICEL HEMOSTAT 4X8 EACH. ONE (06:06)
[2018-05-22] MEDS ORDERED: IOHEXOL 300 MG/ML 100ML VIAL. ONE (06:06)
[2018-05-22] MEDS: PANTOPRAZOLE IV PUSH 40 MG VIAL. IVP SCH (06:20)
[2018-05-22] MEDS ORDERED: HYDROmorphone 2 MG/ML VIAL IV PRN (07:00)
[2018-05-22] MEDS ORDERED: ONDANSETRON PF 4 MG/2 ML VIAL. IV PRN (07:00)
[2018-05-22] MEDS ORDERED: PROCHLORPERAZINE 10 MG/2 ML VIAL. IV PRN (07:00)
[2018-05-22] MEDS ORDERED: IV RINGERS,LACTATED 1000ML 1,000 ML IV SCH (07:00)
[2018-05-22] MEDS ORDERED: LIDOCAINE 1% PF 2 ML VIAL. ID PRN (07:00)
[2018-05-22] MEDS ORDERED: fentaNYL PF VIAL 100 MCG/2 ML VIAL IV PRN (07:00)
[2018-05-22] MEDS ORDERED: ROCURONIUM 50 MG/5 ML VIAL. ONE (07:14)
[2018-05-22] MEDS ORDERED: DEXAMETHASONE SOD PHOS 20 MG/5 ML VIAL. ONE (07:14)
[2018-05-22] MEDS ORDERED: LIDOCAINE 2% PF 5 ML VIAL. ONE (07:14)
[2018-05-22] MEDS ORDERED: ONDANSETRON PF 4 MG/2 ML VIAL. ONE (07:14)
[2018-05-22] MEDS ORDERED: PROPOFOL 20 ML IV ONE (07:14)
[2018-05-22] MEDS ORDERED: fentaNYL PF VIAL 100 MCG/2 ML VIAL ONE ×2 (07:14→08:44)
[2018-05-22] MEDS ORDERED: MIDAZOLAM HCL/PF 2 MG/2 ML VIAL. ONE (07:17)
[2018-05-22 07:44] LABS: CALCIUM 8.1 mg/dL (8.5-10.1); CREATININE 0.7 mg/dL (0.6-1.0); GFR 119.7; POTASSIUM 3.7 mmol/L (3.5-5.1); TOTAL BILIRUBIN 2.2 mg/dL (0.2-1.0)
[2018-05-22] MEDS ORDERED: KETOROLAC 30 MG/ML INJ FOR OR. INJ ONE (08:11)
[2018-05-22] MEDS ORDERED: GLYCOPYRROLATE 1 MG/5 ML VIAL. ONE (08:11)
[2018-05-22] MEDS ORDERED: NEOSTIGMINE METHYLSULFATE 5 MG/5 ML SYRINGE. ONE (08:11)
[2018-05-22] MEDS ORDERED: SEVOFLURANE 61 TO 120 MINUTES. IH ONE (08:12)
[2018-05-22] MEDS ORDERED: SEVOFLURANE 31 TO 60 MINUTES. IH ONE (08:12)
[2018-05-22] MEDS: IV NORMAL SALINE 1000ML BAG 1,000 ML IV SCH (08:14)
--- NOTE | 2018-05-22 08:20 | PDOC4 ---
Operative Note Operative Note Operative Note: Preoperative Diagnosis: Calculus cholecystitis Postoperative Diagnosis: Same Procedure: Laparoscopic cholecystectomy with intraoperative cholangiogram Surgeons: Keven Anesthesia: Gen. Estimated Blood Loss: 10 mL Specimen: Gallbladder to pathology Drains: None Complications: None Indications: The patient is a 27-year-old female who is been experiencing recurrent upper abdominal pain consistent with biliary colic. Surgical treatment was offered by means of a laparoscopic cholecystectomy. The risks of surgery were discussed which include bleeding, infection, bile duct injury, bile leak, pain, the potential for additional surgeries or procedures. The patient understands and would like to proceed. Description: The patient was taken to the operating room and laid supine on the operating table. General anesthesia was performed. The abdomen was prepped with ChloraPrep and draped in a standard surgical fashion. A small infraumbilical incision was made with a scalpel. The Veress needle was then inserted and a pneumoperitoneum was then created. A 5 mm trocar was then inserted and the laparoscope was introduced. In the upper midabdomen a 5 mm trocar was inserted and in the right upper quadrant two 2.3 mm mini lap graspers were inserted. The gallbladder was retracted cephalad. The cystic duct was dissected free from surrounding tissues. One clip was placed on the duct near the gallbladder junction. An opening was made in the duct and a cholangiocatheter placed within and secured with a clip. Using contrast dye and fluoroscopy an intraoperative cholangiogram was performed that appeared unremarkable. The clip and catheter were then withdrawn. Three clips were placed on the cystic duct and it was divided. The cystic artery was then identified, dissected free, doubly clipped and divided as well. The gallbladder was then mobilized away from the liver with cautery. The umbilical 5 millimeter trocar was exchanged for an 11 millimeter trocar. The gallbladder was then placed in an endoscopic bag and extracted at the umbilical trocar site. The fascia there was closed with an 0 Vicryl suture. All blood and irrigation fluid was suctioned and hemostasis was good. The remaining ports were removed and the pneumoperitoneum was relieved. The skin incisions were injected with half percent Marcaine with epinephrine, and all were closed using 4-0 Monocryl suture. Steri-Strips and dressings were then applied. The patient tolerated the procedure well and was sent to the recovery room in stable condition. At the end of the case all counts were correct. RONNY HUNT MD May 22, 2018 08:20
--- NOTE | 2018-05-22 08:25 | RAD ---
Indication: Cholangiogram. TECHNIQUE: Cholangiogram in the OR with total fluoroscopy time of 0.4 minutes and 3 images. COMPARISON: None FINDINGS: Cystic duct remnant is cannulated. The injected contrast is seen opacifying the cystic duct remnant, CBD, common hepatic duct and right and left hepatic ducts without evidence of filling defects. Second portion of duodenum is opacified with the excreted contrast. IMPRESSION: No filling defects in the extrahepatic ducts. Electronically signed by: Pedro Norris DO (05/22/2018 8:22 AM) [facility]
[2018-05-22] MEDS ORDERED: oxyCODONE/APAP 5/325 1 TAB TABLET PO PRN (08:30)
[2018-05-22] MEDS: fentaNYL PF VIAL 100 MCG/2 ML VIAL IV PRN ×2 (08:55→09:02)
[2018-05-22] MEDS ORDERED: MORPHINE SULFATE 2 MG/ML VIAL. ONE (09:17)
[2018-05-22] MEDS: MORPHINE SULFATE 2 MG/ML VIAL. IV PRN ×2 (09:21→09:38)
[2018-05-22] MEDS: oxyCODONE/APAP 5/325 1 TAB TABLET PO PRN ×2 (10:07→13:41)
[2018-05-22 10:15] VITALS: BP 104/64
[2018-05-22 10:30] VITALS: BP 108/68
[2018-05-22 11:00] VITALS: BP_SYST 101; BP_SYST 117; BP_DIAS 60; BP_DIAS 63
[2018-05-22 11:15] VITALS: BP 102/65
--- NOTE | 2018-05-22 13:25 | PDOC ---
Objective: Vital Signs: Vital Signs Date Time Temp Pulse Resp B/P (MAP) Pulse Ox O2 Delivery O2 Flow Rate FiO2 05/22/18 11:08 16 Room Air 05/22/18 11:00 98.4 71 117/60 (79) 97 98.4 05/22/18 08:55 10.0 Labs: Laboratory Tests Test 05/22/18 03:25 White Blood Count 6.7 x10^3/uL Red Blood Count 3.39 x10^6/uL Hemoglobin 11.5 g/dL Hematocrit 34.6 % Mean Corpuscular Volume 102 fL Mean Corpuscular Hemoglobin 34 pg Mean Corpuscular Hemoglobin Concent 33 g/dL Red Cell Distribution Width 13.8 % Platelet Count 152 x10^3/uL Sodium Level 140 mmol/L Potassium Level 3.7 mmol/L Chloride Level 104 mmol/L Carbon Dioxide Level 27 mmol/L Anion Gap 9 Blood Urea Nitrogen 4 mg/dL Creatinine 0.7 mg/dL Estimated GFR (Cockcroft-Gault) 119.7 BUN/Creatinine Ratio 6 Glucose Level 100 mg/dL Calcium Level 8.1 mg/dL Total Bilirubin 2.2 mg/dL Aspartate Amino Transf (AST/SGOT) 454 U/L Alanine Aminotransferase (ALT/SGPT) 499 U/L Alkaline Phosphatase 93 U/L Total Protein 6.0 g/dL Albumin 3.0 g/dL Albumin/Globulin Ratio 1.0 Imaging: MRCP 05/21 IMPRESSION: 1. No intra-or extrahepatic duct dilation to suggest distal obstructing lesion. The mid and distal CBD is completely collapsed. IOC 05/22 IMPRESSION: No filling defects in the extrahepatic ducts. PE: out of room A/P: Cholelithiasis - MRCP and IOC as above Macrocytic anemia Elevated bili, AST, ALT - worse -- Was out of room, will follow post-op. BETTE LUTZ May 22, 2018 13:25
[2018-05-22 15:00] VITALS: BP 94/62
--- NOTE | 2018-05-22 15:45 | NUR ---
CHENTE following. Discussed with RN, pt likely discharging today. CHENTE met with pt to discuss self pay status, pt reported she has [employer] insurance but does not have her insurance card. SW advised case management, who has emailed registration. RN notified.
[2018-05-22] MEDS ORDERED: OXYC1TAB15 PO (17:30)
[2018-05-22] MEDS ORDERED: ONDA4TAB7 PO (17:30)
--- NOTE | 2018-05-22 18:32 | NUR ---
Discharge instructions and belongings reviewed with patient, verbalized understanding. Patient was escorted out via wheelchair by aide and accompanied by family.
--- NOTE | 2018-05-22 18:34 | PDOC3 ---
Discharge Summary Visit Information Date of Admission: May 21, 2018 Date of Discharge: May 22, 2018 Admitting Diagnosis: abdominal pain, biliary colic Final Diagnosis Problems Medical Problems: (1) Choledocholithiasis Status: Acute Brief Hospital Course Allergies Allergies Coded Allergies Type Severity Reaction Last Updated Verified No Known Drug Allergies 05/22/18 No Vital Signs Vital Signs Date Time Temp Pulse Resp B/P (MAP) Pulse Ox O2 Delivery O2 Flow Rate FiO2 05/22/18 15:07 16 Room Air 05/22/18 15:00 97.9 64 94/62 (73) 98 97.9 05/22/18 08:55 10.0 Lab Results Laboratory Tests Test 05/21/18 07:15 05/21/18 07:30 05/21/18 07:33 05/22/18 03:25 Urine Collection Type Unknown Urine Color Melyssa Urine Clarity Clear Urine pH 6.5 Urine Specific [place] >=1.030 Urine Protein Negative mg/dL (NEG-TRACE) Urine Glucose (UA) Negative mg/dL (NEG) Urine Ketones (Stick) Trace mg/dL (NEG) Urine Blood Negative (NEG) Urine Nitrite Negative (NEG) Urine Bilirubin Small (NEG) Urine Urobilinogen Dipstick 2.0 mg/dL (0.2 mg/dL) Urine Leukocyte Esterase Trace (NEG) Urine RBC 0 /HPF (0-2) Urine WBC 0 /HPF (0-4) Urine Squamous Epithelial Cells Few /LPF Urine Bacteria 0 /HPF (0-FEW) Urine Mucus Marked /LPF Urine Opiates Screen Neg (NEG) Urine Methadone Screen Neg (NEG) Urine Barbiturates Neg (NEG) Urine Phencyclidine Screen Neg (NEG) Urine Amphetamine/Methamphetamine Neg (NEG) Urine Benzodiazepines Screen Neg (NEG) Urine Cocaine Screen Neg (NEG) Urine Cannabinoids Screen Neg (NEG) Urine Ethyl Alcohol Neg (NEG) Bedside Urine HCG, Qualitative Hcg negative (Negative) White Blood Count 13.6 x10^3/uL (4.0-11.0) 6.7 x10^3/uL (4.0-11.0) Red Blood Count 3.82 x10^6/uL (3.50-5.40) 3.39 x10^6/uL (3.50-5.40) Hemoglobin 12.9 g/dL (12.0-15.5) 11.5 g/dL (12.0-15.5) Hematocrit 38.6 % (36.0-47.0) 34.6 % (36.0-47.0) Mean Corpuscular Volume 101 fL (79-100) 102 fL (79-100) Mean Corpuscular Hemoglobin 34 pg (25-35) 34 pg (25-35) Mean Corpuscular Hemoglobin Concent 33 g/dL (31-37) 33 g/dL (31-37) Red Cell Distribution Width 13.7 % (11.5-14.5) 13.8 % (11.5-14.5) Platelet Count 190 x10^3/uL (140-400) 152 x10^3/uL (140-400) Neutrophils (%) (Auto) 84 % (31-73) Lymphocytes (%) (Auto) 10 % (24-48) Monocytes (%) (Auto) 5 % (0-9) Eosinophils (%) (Auto) 0 % (0-3) Basophils (%) (Auto) 0 % (0-3) Neutrophils # (Auto) 11.4 x10^3uL (1.8-7.7) Lymphocytes # (Auto) 1.4 x10^3/uL (1.0-4.8) Monocytes # (Auto) 0.7 x10^3/uL (0.0-1.1) Eosinophils # (Auto) 0.1 x10^3/uL (0.0-0.7) Basophils # (Auto) 0.0 x10^3/uL (0.0-0.2) Sodium Level 141 mmol/L (136-145) 140 mmol/L (136-145) Potassium Level 3.9 mmol/L (3.5-5.1) 3.7 mmol/L (3.5-5.1) Chloride Level 103 mmol/L (98-107) 104 mmol/L (98-107) Carbon Dioxide Level 26 mmol/L (21-32) 27 mmol/L (21-32) Anion Gap 12 (6-14) 9 (6-14) Blood Urea Nitrogen 9 mg/dL (7-20) 4 mg/dL (7-20) Creatinine 0.9 mg/dL (0.6-1.0) 0.7 mg/dL (0.6-1.0) Estimated GFR (Cockcroft-Gault) 89.6 119.7 BUN/Creatinine Ratio 10 (6-20) 6 (6-20) Glucose Level 122 mg/dL (70-99) 100 mg/dL (70-99) Calcium Level 9.3 mg/dL (8.5-10.1) 8.1 mg/dL (8.5-10.1) Ferritin 216 ng/mL (8-252) Total Bilirubin 1.1 mg/dL (0.2-1.0) 2.2 mg/dL (0.2-1.0) Aspartate Amino Transf (AST/SGOT) 131 U/L (15-37) 454 U/L (15-37) Alanine Aminotransferase (ALT/SGPT) 78 U/L (14-59) 499 U/L (14-59) Alkaline Phosphatase 84 U/L (46-116) 93 U/L (46-116) Total Protein 7.4 g/dL (6.4-8.2) 6.0 g/dL (6.4-8.2) Albumin 3.8 g/dL (3.4-5.0) 3.0 g/dL (3.4-5.0) Albumin/Globulin Ratio 1.1 (1.0-1.7) 1.0 (1.0-1.7) Lipase 110 U/L (73-393) Vitamin B12 Level 1233 pg/mL (247-911) Thyroid Stimulating Hormone (TSH) 1.506 uIU/mL (0.358-3.74) Ethyl Alcohol Level < 10 mg/dL (0-10) Laboratory Tests Test 05/22/18 03:25 White Blood Count 6.7 x10^3/uL (4.0-11.0) Red Blood Count 3.39 x10^6/uL (3.50-5.40) Hemoglobin 11.5 g/dL (12.0-15.5) Hematocrit 34.6 % (36.0-47.0) Mean Corpuscular Volume 102 fL (79-100) Mean Corpuscular Hemoglobin 34 pg (25-35) Mean Corpuscular Hemoglobin Concent 33 g/dL (31-37) Red Cell Distribution Width 13.8 % (11.5-14.5) Platelet Count 152 x10^3/uL (140-400) Sodium Level 140 mmol/L (136-145) Potassium Level 3.7 mmol/L (3.5-5.1) Chloride Level 104 mmol/L (98-107) Carbon Dioxide Level 27 mmol/L (21-32) Anion Gap 9 (6-14) Blood Urea Nitrogen 4 mg/dL (7-20) Creatinine 0.7 mg/dL (0.6-1.0) Estimated GFR (Cockcroft-Gault) 119.7 BUN/Creatinine Ratio 6 (6-20) Glucose Level 100 mg/dL (70-99) Calcium Level 8.1 mg/dL (8.5-10.1) Total Bilirubin 2.2 mg/dL (0.2-1.0) Aspartate Amino Transf (AST/SGOT) 454 U/L (15-37) Alanine Aminotransferase (ALT/SGPT) 499 U/L (14-59) Alkaline Phosphatase 93 U/L (46-116) Total Protein 6.0 g/dL (6.4-8.2) Albumin 3.0 g/dL (3.4-5.0) Albumin/Globulin Ratio 1.0 (1.0-1.7) Brief Hospital Course Ms Hernandez 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 She has had some vomiting, but no diarrhea or constipation. No bloody emesis, and she denies any lower abdominal pain, pelvic pain, vaginal bleeding, discharge, or urinary symptoms. She states she had a similar episode of pain several months ago, and went to a freestanding ER, [facility], where she received some prescriptions but apparently did not get any abdominal imaging, according to the patient and her mother bedside. She had similar symptoms about 9 months ago, was seen at an outpatient [facility] clinic, told she had mild LFT elevation and WBC elevation and states she was treated for GERD. She has not eaten anything today due to vomiting, cannot recall if pain worsened by food, though she does think so. The pain is in her epigastric area as well as RUQ and does not necessarily radiate. There are no alleviating or exacerbating factors to her symptoms otherwise. WBC 13.6, Bili 1.1, AST 131, ALT 78. Negative ETOH. Has a 12 and 9 yo child at home, both in good health. 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 No recent illnesses. Accompanied by her mother, bedside. Patient underwent laparoscopic cholecystectomy with intraooperative cholangiogram, after the findings noted on MRCP and her recurrent symptoms. She tolerated procedure well and was able to tolerated food prior to discharge. At the time of the note waiting for fianl reocmmendations from neurosurgical physician assistant. Patient hoping to be dismissed soon Lungs clear to auscultation with good inspiratory effort CVS s1s2 rr no murmurs Discharge Information Condition at Discharge: Improved Follow Up: Weeks Disposition/Orders: D/C to Home Scheduled Ondansetron Hcl (Zofran) 4 Mg Tablet, 1 TAB PO Q6HRS for nausea, #20 Prescribed by: JACI GREEN MD on 05/22/18 1730 Scheduled PRN Metoclopramide Hcl (Reglan) 10 Mg Tablet, 1 TAB PO TID PRN for PAIN, #90 Prescribed by: ESTRADA POLLARD APRN on 09/23/16 1416 Oxycodone/Apap 5-325 (Percocet 5-325 Mg Tablet ) 1 Each Tablet, 1 TAB PO PRN Q4HRS PRN for PAIN for 3 Days, #15 Prescribed by: JACI GREEN MD on 05/22/18 1730 Discontinued Medications Info (No Known Medications Prior To Admisstion) Each, 1 EACH MC, (Reported) Entered as Reported by: SCOUT HANAN on 10/24/14 0936 JACI GREEN MD May 22, 2018 18:34
--- NOTE | 2018-05-23 14:12 | PATHOLOGY ---
[facility] Accession Number: [id number] . 01 Material submitted: . GALLBLADDER . 01 Clinical history: . Cholecystitis . 02 Diagnosis: Gallbladder, laparoscopic cholecystectomy: - Cholelithiasis. - Cholesterolosis. - Chronic cholecystitis. . (JP:mm; 05/23/2018) [facility]/05/23/2018 . 02 Comment: There is no evidence of malignancy. . (JPM:mm; 05/23/2018) . 02 Electronically signed: . John De La Paz MD, Pathologist NPI- [id number] . 01 Gross description: . Received in formalin labeled "David, Lidia, gallbladder," is an intact, gallbladder measuring 6.4 x 2.9 x 2.4 cm in greatest dimensions. The serosal surface is smooth to shaggy and pale pink-subramanian to blue-green in appearance, displaying multiple foci of dark red hemorrhage. Opening the specimen reveals a shaggy, dark green mucosa stippled with yellow highlights and measuring 0.1 cm in thickness, with a gallbladder wall thickness of up to 0.2 cm. No polyps or nodules are noted grossly. Calculi are present within the specimen that are granular and bright yellow in appearance, ranging from 0.1 to 0.2 cm in maximum dimension. Cutter Inspector sections of the infundibulum, body and fundus are submitted in cassette A1. ([facility]; 05/22/2018) XDC/XDC . 02 Pathologist provided ICD-10: K80.10, K82.4 . 02 CPT . 076987 Specimen Comment: A courtesy copy of this report has been sent to Specimen Comment: [phone], , . Specimen Comment: Report sent to ,DR ESPINO / DR STEELE Specimen Comment: A duplicate report has been generated due to demographic updates. Performed at: 01 [facility] [address] [id number] MD Magdaleno Bonilla MD Phone: [phone] Performed at: 02 [facility] [address] [place], [place] [id number] MD John De La Paz MD Phone: [phone]
== END 2018-05-22 19:02 | disposition home or self-care (01) | DRG 419 ==
LOC: ER 07:10 → 4 NORTH 09:10
PROVIDERS: ADMIT Internal Medicine; ATTEND Internal Medicine
PROC: BF131ZZ Fluoroscopy of Gallbladder and Bile Ducts using Low Osmolar Contrast (ICD-10-PCS; 2018-05-22)
PROC: 0FT44ZZ Resection of Gallbladder, Percutaneous Endoscopic Approach (ICD-10-PCS; principal; 2018-05-22 07:30)
DX: K80.60 Calculus of gallbladder and bile duct with cholecystitis, unspecified, without obstruction (principal); K21.9 Gastro-esophageal reflux disease without esophagitis; D53.9 Nutritional anemia, unspecified; D72.829 Elevated white blood cell count, unspecified
CPT/HCPCS: 36415; 74181; 74300; 76705; 80053; 80307; 81001; 81025; 82607; 82728; 83690; 84443; 85025; 85027; 87086; 88304; A7015; C9113; G0480; J0696; J1100; J1885; J2001; J2185; J2250; J2270; J2405; J2704; J2710; J3010; J3490; J7030; J7120; Q9967

== ENCOUNTER 2019-10-07 11:52 | Emergency (ER) | payer OTHER ==
[~2019-10-07] VITALS: Ht 175.3 cm; Wt 68.0 kg
[~2019-10-07 11:52] MED LIST changes: +ONDA4TAB7 PO; +OXYC1TAB15 PO
[2019-10-07 13:35] VITALS: BP 112/65
[2019-10-07 14:05] LABS: BILIRUBIN,URINE NEGATIVE (NEG); CLARITY,URINE CLEAR; COLOR,URINE YELLOW; NITRITE,URINE NEGATIVE (NEG); PROTEIN,URINE NEGATIVE (NEG-TRACE)
[2019-10-07 14:09] LABS: BACTERIA,URINE FEW /HPF (0-FEW); RBC,URINE 0 /HPF (0-2); WBC,URINE 0 /HPF (0-4)
[2019-10-07 14:10] LABS: SQUAMOUS EPITHELIAL CELL,UR MOD /LPF
[2019-10-07] MEDS ORDERED: NAPR-514 PO (14:52)
[2019-10-07] MEDS ORDERED: CYCL10TA2 PO (14:52)
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
[2019-10-07 15:08] LABS: U PREG PATIENT NEGATIVE (NEG)
== END 2019-10-07 15:14 | disposition home or self-care (01) ==
LOC: ER 11:52
DX: G89.11 Acute pain due to trauma (principal); M54.5 Low back pain; G43.909 Migraine, unspecified, not intractable, without status migrainosus; V49.9XXA Car occupant (driver) (passenger) injured in unspecified traffic accident, initial encounter; Y93.89 Activity, other specified; Y92.413 State road as the place of occurrence of the external cause; Y99.8 Other external cause status
CPT/HCPCS: 81001; 81025; 99283